=== PATIENT | female | born 1955 | race Two or more races ===

== ENCOUNTER → 2017-11-14 | Outpatient (CLI) | payer OTHER ==
[~2017-11-14] MED LIST: Adult Low Dose81 MG PO; Advil200 M1 PO; GUAI120S1 PO; LETR2.5 PO; LOSA25 PO; METF500 PO; OMEP20ER PO; Omega 3 Fish O1 EACH PO; SIMV40 PO; VITAMIN C500 MG PO; VITAMIN D-32000 UNI1 PO
== END | disposition home or self-care (01) ==
LOC: LAB 08:10
DX: R39.15 Urgency of urination (principal)
CPT/HCPCS: 87086

== ENCOUNTER → 2017-12-04 | Outpatient (CLI) | payer OTHER ==
[2017-12-04 17:47] LABS: Specimen Source URINE
[2017-12-04 18:30] LABS: Appearance, Urine Clear (Clear); Bilirubin, Urine Neg (Neg); Blood, Urine Neg (Neg); Color, Urine Yellow (P-Yellow); Glucose Qualitative, Urine Neg (Neg); Ketones, Urine Neg (Neg); Leukocyte Esterase, Urine Neg (Neg); Nitrite, Urine Neg (Neg); Protein, Urine Neg (Neg); Urobilinogen, Urine NORM (Normal); pH, Urine 6.5 (5.0-8.0)
[2017-12-05 14:11] LABS: Source Urine
== END | disposition home or self-care (01) ==
LOC: LAB 17:45
PROVIDERS: Nurse Practitioner Family
DX: R35.0 Frequency of micturition (principal); R39.15 Urgency of urination
CPT/HCPCS: 81003; 87491; 87591

== ENCOUNTER → 2019-05-13 | Outpatient (CLI) | payer OTHER | END | disposition home or self-care (01) | LOC: LAB 09:31 → LAB SHORT 09:31 | DX: R19.7 Diarrhea, unspecified (principal) | CPT/HCPCS: 87177; 87209 ==

== ENCOUNTER → 2019-07-02 | Outpatient (CLI) | payer OTHER ==
[2019-07-02 13:53] LABS: Campylobacter Sp Not Detected (NOT DETECT); Plesiomonas Shigelloides Not Detected (NOT DETECT); Salmonella Sp Not Detected (NOT DETECT)
[2019-07-02 13:54] LABS: Adenovirus F 40/41 Not Detected (NOT DETECT); Astrovirus Not Detected (NOT DETECT); Cryptosporidium Not Detected (NOT DETECT); Cyclospora Cayetanensis Not Detected (NOT DETECT); E. Coli O157 Not Detected (NOT DETECT); Entamoeba Histolytica Not Detected (NOT DETECT); Enteroaggregative E. coli-EAEC Not Detected (NOT DETECT); Enteropathogenic E. coli-EPEC Not Detected (NOT DETECT); Enterotoxigenic E. coli-ETEC Not Detected (NOT DETECT); Giardia Lamblia Not Detected (NOT DETECT); Norovirus GI/GII Not Detected (NOT DETECT); Rotavirus A Not Detected (NOT DETECT); Sapovirus Not Detected (NOT DETECT); Shiga Toxin-prod E. coli-STEC Not Detected (NOT DETECT); Shigella/Enteroin E. coli-EIEC Not Detected (NOT DETECT); Vibrio Cholerae Not Detected (NOT DETECT); Vibrio Sp Not Detected (NOT DETECT); Yersinia Enterocolitica Not Detected (NOT DETECT)
== END | disposition home or self-care (01) ==
LOC: LAB 09:36 → LAB SHORT 09:36
PROVIDERS: Nurse Practitioner Family
DX: R19.7 Diarrhea, unspecified (principal)
CPT/HCPCS: 0097U

== ENCOUNTER 2020-12-02 11:04 | Day surgery (SDC) | payer OTHER ==
[~2020-12-02] VITALS: Ht 157.5 cm; Wt 62.0 kg
[~2020-12-02 11:04] MED LIST changes: +ASCO500 PO; +ATOR80 PO; +CALCIUM 600 +1 EAC7 PO; +LOSARTAN-HCTZ1 EAC6 PO; +MAGNESIUM250 MG PO; +MYRBETRIQ50 MG PO; +Ranitidine HCl150 M1 PO
== END 2020-12-02 13:08 | disposition home or self-care (01) ==
LOC: ORSCSDS 11:04
DX: R11.2 Nausea with vomiting, unspecified (principal); R19.7 Diarrhea, unspecified; K22.2 Esophageal obstruction; K44.9 Diaphragmatic hernia without obstruction or gangrene; K31.7 Polyp of stomach and duodenum; Z79.82 Long term (current) use of aspirin; Z79.899 Other long term (current) drug therapy
CPT/HCPCS: 88305; 88342; J2704; J7120

== ENCOUNTER 2024-05-06 19:06 | Emergency (ER) | payer OTHER, MEDICARE ==
[~2024-05-06] VITALS: Ht 157.5 cm; Wt 56.7 kg
[2024-05-06 19:23] VITALS: BP 141/88
[2024-05-06] MEDS ORDERED: OxyCODONE 5 mg/Acetamin 325 mg TABLET PO ONE (20:35)
[2024-05-06] MEDS ORDERED: OXYACE7.5T PO (20:39)
== END 2024-05-06 21:01 | disposition home or self-care (01) ==
LOC: ER 19:06
DX: S42.211A Unspecified displaced fracture of surgical neck of right humerus, initial encounter for closed fracture (principal); S42.021A Displaced fracture of shaft of right clavicle, initial encounter for closed fracture; W01.0XXA Fall on same level from slipping, tripping and stumbling without subsequent striking against object, initial encounter; Z79.899 Other long term (current) drug therapy; Z79.82 Long term (current) use of aspirin; Z88.0 Allergy status to penicillin; Z88.2 Allergy status to sulfonamides; Z91.012 Allergy to eggs
CPT/HCPCS: 29105; 73030; 99283-25; A9270

== ENCOUNTER 2025-01-23 06:13 | Day surgery (SDC) | payer MEDICARE, OTHER ==
[~2025-01-23] VITALS: Ht 160 cm; Wt 57.0 kg
[~2025-01-23 06:13] MED LIST changes: +ACET325 PO; -Advil200 M1 PO; +BUPR75 PO; +IBUP200 PO; +LOSA50 PO; +OXYACE7.5T PO; +PROP10 PO
[2025-01-23] MEDS ORDERED: CeFAZolin Sodium 2,000 MG in NS 100 ML IV SCH (06:20)
[2025-01-23] MEDS ORDERED: Lactated Ringer's 1,000 ML IV SCH (06:20)
[2025-01-23 06:45] VITALS: BP 138/82
[2025-01-23] MEDS ORDERED: CeFAZolin Sodium 2,000 MG VIAL ONE (06:59)
[2025-01-23] MEDS ORDERED: FentaNYL Citrate 50 MCG/ML 5 ML Injection ONE (07:02)
[2025-01-23] MEDS ORDERED: propofoL 60 ML IV ONE (07:02)
[2025-01-23] MEDS ORDERED: Bupivacaine 0.5% HCl 5 MG/ML 30MLVIAL ONE (07:07)
[2025-01-23] MEDS ORDERED: Midazolam HCl 1MG / ML 2ML Vial ONE (07:25)
[2025-01-23] MEDS ORDERED: Lidocaine HCl 1% 30 ML SDV ONE (07:38)
[2025-01-23] MEDS ORDERED: FentaNYL Citrate 50 MCG/ML 2 ML Injection ONE (07:56)
--- NOTE | 2025-01-23 08:05 | NUR ---
01/23/25 0805 Amber Michael 1% LIDOCAINE MIXED WITH 0.5% BUPIVACAINE TO CREATE A 1:1 SOLUTION.
[2025-01-23] MEDS ORDERED: Ketorolac Tromethamine 30mg Vial ONE (08:10)
[2025-01-23] MEDS ORDERED: Ondansetron HCl 2 MG / ML 2ML Vial ONE (08:10)
[2025-01-23] MEDS ORDERED: Dexamethasone Sod Phos 10 MG/ML 1ML VIAL ONE (08:10)
[2025-01-23 08:25] VITALS: BP 97/65
[2025-01-23] MEDS ORDERED: HYDROcodone 5-APAP 325 TAB PO PRN (08:30)
[2025-01-23 08:40] VITALS: BP 135/70
[2025-01-23 08:55] VITALS: BP 144/74
--- NOTE | 2025-01-23 09:05 | NUR ---
Discharge instructions reviewed with patient. Patient verbalizes understanding. Copy given to patient to take home. Dressing c/d/i. Personal items returned. [employer] supplies for first apt given to pt. Patient States Post-Procedure ride home has been arranged. Discharged via wheelchair to private car for ride home.
== END 2025-01-23 09:05 | disposition home or self-care (01) ==
LOC: ORSCMMR 06:13 → ORD 07:30 → ORSCMMR 09:05
PROVIDERS: Surgery
PROC: 0JH60WZ Insertion of Totally Implantable Vascular Access Device into Chest Subcutaneous Tissue and Fascia, Open Approach (ICD-10-PCS; principal; 2025-01-23 07:30)
DX: C50.411 Malignant neoplasm of upper-outer quadrant of right female breast (principal); E11.22 Type 2 diabetes mellitus with diabetic chronic kidney disease; I12.9 Hypertensive chronic kidney disease with stage 1 through stage 4 chronic kidney disease, or unspecified chronic kidney disease; N18.30 Chronic kidney disease, stage 3 unspecified; K21.9 Gastro-esophageal reflux disease without esophagitis; E78.5 Hyperlipidemia, unspecified; Z79.82 Long term (current) use of aspirin; Z79.899 Other long term (current) drug therapy
CPT/HCPCS: 77001; 82947; C1788; C1894; J0690; J1100; J1642; J1885; J2250; J2405; J2704; J3010; J7120

== ENCOUNTER 2025-06-05 07:14 | Day surgery (SDC) | payer MEDICARE, OTHER ==
[~2025-06-05 07:14] MED LIST changes: +ASPIR 8181 M1 PO; +ATOR40TA PO; -ATOR80 PO; -Adult Low Dose81 MG PO; +DECADRON4 M1; +OMEGA-3 FISH O1 EA20 PO; +ONDA4 PO; -Omega 3 Fish O1 EACH PO; +PANT40 PO; +Vitamin D1000 UNI1 PO
== END 2025-06-05 23:00 | disposition home or self-care (01) ==
LOC: MOI US 07:14
DX: C50.411 Malignant neoplasm of upper-outer quadrant of right female breast (principal)
CPT/HCPCS: 19285; 77065; A4648; G0279

== ENCOUNTER 2025-06-10 07:02 | Day surgery (SDC) | payer MEDICARE, OTHER ==
[~2025-06-10] VITALS: Ht 157.5 cm; Wt 58.3 kg
[2025-06-10] VITALS (14 sets, daily range): BP systolic 119–171; BP diastolic 55–551
[~2025-06-10 07:02] MED LIST changes: +CeFAZolin Sodium 2,000 MG VIAL ONE; +CeFAZolin Sodium 2,000 MG in NS 100 ML IV SCH
[2025-06-10] MEDS ORDERED: FentaNYL Citrate 50 MCG/ML 2 ML Injection ONE ×3 (07:59→10:49)
[2025-06-10] MEDS ORDERED: Ondansetron HCl 2 MG / ML 2ML Vial ONE (07:59)
[2025-06-10] MEDS ORDERED: Dexamethasone Sod Phos 10 MG/ML 1ML VIAL ONE (07:59)
--- NOTE | 2025-06-10 08:24 | NUR ---
PRE OP NOTE PT A&OX4, BREATHING RA, NO COMPLAINTS. Ambulatory in Day Surgery Patient confirms NPO status and agrees with scheduled surgery. Pre-Op teaching done. Pt verbalizes understanding. Patient States Post-Procedure ride home has been arranged. 0825 NUC MED AT BEDSIDE.
[2025-06-10] MEDS ORDERED: Bupivacaine 0.5% HCl 5 MG/ML 30MLVIAL ONE (08:43)
[2025-06-10] MEDS ORDERED: HYDROmorphone HCl/Pf 1MG SYR IV PRN (08:45)
[2025-06-10] MEDS ORDERED: Ondansetron HCl 2 MG / ML 2ML Vial IV PRN (08:45)
[2025-06-10] MEDS ORDERED: FentaNYL Citrate 50 MCG/ML 2 ML Injection IV PRN ×3 (08:45)
[2025-06-10] MEDS ORDERED: Metoclopramide HCl 5MG / ML 2ML Vial IV PRN (08:45)
[2025-06-10] MEDS ORDERED: Labetalol HCL 5 MG/ML 4ML Injection (Single Dose) IV PRN (08:45)
[2025-06-10] MEDS ORDERED: HYDROmorphone HCl/Pf 1MG SYR ONE (10:26)
[2025-06-10] MEDS ORDERED: HYDROcodone 5-APAP 325 TAB PO PRN (12:15)
--- NOTE | 2025-06-10 12:30 | NUR ---
DISCHARGE PT A&O4/VSS/RA/C&DB/FOLLOWS COMMANDS/TALKING/PLEASANT, PAIN MANAGED- 1 NORCO GIVEN, DENIES NAUSEA/OKSANA PO H20 & JELLO, DRESSED SELF, VOIDED, IV DC'D, LEFT VIA WC WITH DC INS/PERSONAL BELONGINGS TO GO HOME WITH KETTLE HAND.
== END 2025-06-10 23:00 | disposition home or self-care (01) ==
LOC: ORSCMMR 07:02 → MHTC 07:02 → NM 07:02 → ORSCMMR 07:33 → MHTC 07:33 → NM 08:30 → ORSCMMR 14:06 → NM 23:00 → ORSCMMR 23:00
PROVIDERS: Surgery
PROC: 0HBT0ZZ Excision of Right Breast, Open Approach (ICD-10-PCS; principal; 2025-06-10 08:45)
PROC: 07B50ZX Excision of Right Axillary Lymphatic, Open Approach, Diagnostic (ICD-10-PCS; principal; 2025-06-10 08:45)
DX: C50.411 Malignant neoplasm of upper-outer quadrant of right female breast (principal); D36.0 Benign neoplasm of lymph nodes; Z17.1 Estrogen receptor negative status [ER-]; Z17.22 Progesterone receptor negative status; Z17.31 Human epidermal growth factor receptor 2 positive status; K21.9 Gastro-esophageal reflux disease without esophagitis; E78.5 Hyperlipidemia, unspecified; Z79.899 Other long term (current) drug therapy; Z79.82 Long term (current) use of aspirin; Z85.3 Personal history of malignant neoplasm of breast; E11.22 Type 2 diabetes mellitus with diabetic chronic kidney disease; I12.9 Hypertensive chronic kidney disease with stage 1 through stage 4 chronic kidney disease, or unspecified chronic kidney disease; N18.30 Chronic kidney disease, stage 3 unspecified
CPT/HCPCS: 38792; 76098; A9270; A9520; J0690; J1100; J1171; J2405; J2704; J3010; J7120; Q9968

== ENCOUNTER 2025-09-07 11:07 | Day surgery (SDC) | payer MEDICARE, OTHER ==
[~2025-09-07] VITALS: Ht 157.5 cm; Wt 57.0 kg
[~2025-09-07 11:07] MED LIST changes: -CeFAZolin Sodium 2,000 MG VIAL ONE; -CeFAZolin Sodium 2,000 MG in NS 100 ML IV SCH
--- NOTE | 2025-09-07 11:47 | NUR ---
09/07/25 1147 ALESIA COE PT SLOW TO GET CHANGED/ TALKING TO DR ECKERT
[2025-09-07] MEDS ORDERED: CeFAZolin Sodium 2,000 MG VIAL ONE (11:58)
[2025-09-07] MEDS ORDERED: Bupivacaine 0.5% W/EPI 1:200000 SDV 30 ML Vial ONE (12:52)
[2025-09-07] MEDS ORDERED: Midazolam HCl 1MG / ML 2ML Vial ONE (12:57)
[2025-09-07] MEDS ORDERED: Ropivacaine 0.2% HCl/Pf 2 MG/ML 20ML Vial ONE ×2 (12:58→13:02)
[2025-09-07] MEDS ORDERED: FentaNYL Citrate 50 MCG/ML 2 ML Injection ONE ×2 (13:13→15:17)
--- NOTE | 2025-09-07 13:40 | NUR ---
09/07/25 Olivia0 Serge Alvarenga 350ML FLUIDS LEFT TO COUNT.
[2025-09-07] MEDS ORDERED: HYDROmorphone HCl/Pf 1MG SYR ONE (16:03)
[2025-09-07] MEDS ORDERED: HYDROcodone 5-APAP 325 TAB ONE (16:41)
--- NOTE | 2025-09-07 17:32 | NUR ---
09/07/251731 ALESIA COE PT WAS OFF BIGBOARD DUE TO PT BEING DC WHILE SHE WAS STILL IN OR . RN UNABLE TO GET PAIN MEDS OUT OF [facility] UNTIL PHARMACY CALLED AND ADMITTING PUTTING PT BACK UP ON BIGBOARD SO CHARTING IN WOW COULD BE UPDATED, HENCE THE LATE ENTRIES
--- NOTE | 2025-09-07 17:36 | NUR ---
09/07/25 1736 ALESIA COE LATE CHARTING DUE TO PT BEING RESTORED TO BIGBOARD LATE AND CHARTING UPDATED BY RN
[2025-09-07] MEDS ORDERED: Dexamethasone Sod Phos 10 MG/ML 1ML VIAL IV ONE (17:51)
[2025-09-07] MEDS ORDERED: Ondansetron HCl 2 MG / ML 2ML Vial IV ONE (17:51)
--- NOTE | 2025-09-08 14:11 | NUR ---
09/08/25 1411 ALESIA COE LATE ENTRY DUE TO TECHNICAL DIFFICULTIES.
[2025-09-08 14:19] VITALS: BP 165/84
== END 2025-09-07 17:10 | disposition home or self-care (01) ==
LOC: ORSCSDS 11:07
PROVIDERS: Podiatrist Foot & Ankle Surgery
PROC: 0SSL04Z Reposition Left Tarsometatarsal Joint with Internal Fixation Device, Open Approach (ICD-10-PCS; principal; 2025-09-07 12:30)
PROC: 0SGL04Z Fusion of Left Tarsometatarsal Joint with Internal Fixation Device, Open Approach (ICD-10-PCS; principal; 2025-09-07 12:30)
DX: S92.202A Fracture of unspecified tarsal bone(s) of left foot, initial encounter for closed fracture (principal); I10 Essential (primary) hypertension; K21.9 Gastro-esophageal reflux disease without esophagitis; Z79.899 Other long term (current) drug therapy
CPT/HCPCS: 36415; 84295; A6253; A9270; C1713; C1734; J0690; J1100; J1171; J2250; J2405; J2704; J2795; J3010; J7120